=== PATIENT | male | born 1930 | race Caucasian/White ===

== ENCOUNTER 2017-03-16 09:24 | Inpatient (IN) ==
[2017-03-16] MEDS ORDERED: NS 1,000 ML IV ONE (09:51)
[2017-03-16 10:24] LABS: MANUAL DIFF NEEDED? NO
[2017-03-16 10:25] LABS: BASO% 0.3 % (0.0-0.8); EOS# 0.01 X1000 (0.0-0.7); EOS% 0.2 % (0.0-10.0); HEMATOCRIT 46.9 % (42.0-52.0); IMM GRAN# 0.03 X1000 (0.0-0.04); IMM GRAN% 0.5 % (0.0-0.5); LYMPH% 14.1 % (20.5-51.1); MCH 30.6 PG (27-31); MCHC 34.1 g/dL (33-37); MCV 89.7 FL (81-99); MONO# 0.99 X1000 (0.11-0.59); MONO% 15.5 % (1.7-9.3); MPV 11.1 FL (7.4-10.4); NEUT% 69.4 % (42.2-75.2); PLT 234 X1000 (130-400); RBC 5.23 XMIL (4.7-6.1)
[2017-03-16 10:41] LABS: INR 0.99 (0.86-1.15); PROTIME 13.4 Seconds (12.1-15.5)
--- NOTE | 2017-03-16 10:41 | EKG Report ---
Test Performed on : 03/16/2017 10:28:23 AM Test Reason : CHEST PAIN Blood Pressure : / mmHG Vent. Rate : 064 BPM Atrial Rate : 064 BPM P-R Int : 138 ms QRS Dur : 200 ms QT Int : 584 ms P-R-T Axes : 000 262 069 degrees QTc Int : 602 ms Atrial-sensed ventricular-paced rhythm Abnormal ECG When compared with ECG of 08-MAR-2017 09:48, No significant change was found Unconfirmed Result
[2017-03-16 10:42] LABS: PTT PL 30.3 Seconds (22.6-43.9)
--- NOTE | 2017-03-16 11:13 | Diag Imaging Result Document ---
PROCEDURE NAME: FLAT/UPRIGHT ABD/1 VIEW CHEST - 03/16/2017 FLAT AND UPRIGHT ABDOMEN, SINGLE VIEW CHEST: INDICATION: Cough and abdomen pain. FINDINGS: Supine and erect views of the abdomen reveal surgical clips within the pelvis and right upper quadrant. The bowel gas pattern is nonobstructive. There are degenerative changes lumbar spine. No free air is appreciated. Single view of the chest reveals cardiomegaly with a left pacemaker. There is elevated left hemidiaphragm which is stable. There is increased opacity at the right lung base compatible with infiltrate or focal edema. IMPRESSION: Right basilar infiltrate compatible with pneumonia of focal edema. Nonspecific abdomen.
[2017-03-16 11:38] LABS: ALBUMIN 3.9 g/dL (3.5-5.0); MAGNESIUM 2.8 mg/dL (1.5-2.7); POTASSIUM 3.2 mmol/L (3.5-5.1); TOTAL BILIRUBIN 1.1 mg/dL (0.20-1.00)
[2017-03-16] MEDS ORDERED: VANCOMYCIN 1 GM/NS 1 GM/250 ML IVPB IV ONE (11:52)
[2017-03-16] MEDS ORDERED: KLOR-CON PO ONE (11:52)
[2017-03-16] MEDS ORDERED: ZOSYN 3.375 GM/NS 3.375 GM/50 ML IVPB IV ONE (11:52)
--- NOTE | 2017-03-16 13:50 | PROVIDER DOCUMENTATION ---
This chart was entered by Joaquim Cheung Scribe, acting as scribe for Gabriel Cabezas MD. HPI-General Adult - General Chief Complaint: Weakness Stated Complaint: B/P PROB/LOW O2 STATS Time Seen by Provider: 03/16/17 09:44 Source: patient, family Allergies/Adverse Reactions: Patient Allergies Allergy/AdvReac Type Severity Reaction Status Date / Time codeine AdvReac Severe PT STATES Verified 03/16/17 09:38 "I FELT LIKE I WAS DRUNK" Home Medications: Home Medication List Medication Instructions Recorded Confirmed Last Taken Type Clopidogrel [Plavix] 75 mg PO QAM 01/06/14 03/08/17 02/05/17 06:00 History Potassium Chloride 10 - 20 meq PO DAILY 10/04/14 03/08/17 02/05/17 05:00 History Aspirin 81 mg PO QAM #0 chewtab 10/08/14 03/08/17 02/05/17 06:00 Rx LISINOpril [Prinivil] 2.5 mg PO QAM #0 tablet 10/08/14 03/08/17 02/05/17 06:00 Rx Metoprolol [Lopressor] 12.5 mg PO BID #0 tablet 10/08/14 03/08/17 02/05/17 05: 00 Rx Amiodarone [Cordarone] 200 mg PO QAM 05/03/15 03/08/17 02/05/17 06:00 History Digoxin 125 mcg PO DIRECTED 05/03/15 03/08/17 02/05/17 06:00 History Albuterol Sulfate Inhaler 2 puff INH Q6H PRN PRN #1 inhaler 01/22/16 03/08/17 Rx [Ventolin Hfa] Cholecalciferol (Vitamin D3) 400 unit PO DAILY 01/22/16 03/08/17 02/05/17 06:00 History [Vitamin D3] Furosemide [Lasix] 80 mg PO BID #60 tablet 02/07/17 03/08/17 Unknown Rx Metolazone 5 mg PO DAILY #30 tablet 03/08/17 Unknown Rx - History of Present Illness -Gen Adult Nature of Presenting Problems: patient is a 86 yo M that presents with weakness and cough/congestion x 1 week. patient has been laying around for 5 days. No fever/chills, shortness of breath , chest pain, or n/v/d. patient has dementia , lives with family but still takes care himself. Location of Pain/Injury: reports: generalized Pain Radiation: reports: no radiation Quality of Pain: reports: other (weakness) Severity: reports: moderate Onset/Duration: reports: gradual, 1 week ago Timing: reports: still present, constant Context/Activities at Onset: reports: none Modifying Factors: improves with: nothing Associated Symptoms: reports: cough, fatigue, weakness. denies: chest pain, diarrhea, dizziness, EENT symptoms, fever/chills, genitourinary problems, nausea , rash, vomiting Similar Symptoms Previously?: No Recently seen or treated by another doctor?: No Review of Systems - Adult - REVIEW OF SYSTEMS - ADULT ROS:: ROS per family Constitutional: denies: chills, fever Eyes: reports: no symptoms reported Ears, Nose, Mouth & Throat: denies: ear pain, sinus problem, throat pain, throat swelling Cardiovascular: denies: chest pain, palpitations, syncope Respiratory: reports: cough. denies: shortness of breath, wheezing Gastrointestinal: denies: abdominal pain, diarrhea, nausea, vomiting Genitourinary: reports: no symptoms reported Musculoskeletal: reports: muscle weakness. denies: joint pain Integumentary: denies: hives, itching, rash Neurological: denies: dizziness/vertigo, headache/migraines Psychiatric: reports: no symptoms reported Endocrine: reports: no symptoms reported Hematologic/Lymphatic: reports: no symptoms reported Allergic/Immunologic: reports: no symptoms reported All Other Systems: Reviewed and Negative Past History - Adult - PAST MEDICAL HISTORY-ADULT Review of Records: reports: Old Records Reviewed, Nursing Assessment Review, Medications Reviewed Cardiovascular: reports: CAD, CHF, HTN, pacemaker Respiratory: reports: asthma, COPD Musculoskeletal: reports: arthritis (gout) Neurological: reports: dementia - PRIOR SURGERIES/PROCEDURES Surgical/Procedure History: reports: CABG, cholecystectomy, pacemaker (defib), hernia repair, other (TURP) - IMMUNIZATION STATUS Childhood Immunizations: See Nurse Assessment Flu Vaccine: See Nurse Assessment - FAMILY HISTORY Family History: reviewed, not pertinent - SOCIAL HISTORY Smoking: non-smoker Alcohol Use Frequency: occasionally Living Situation: family Physical Exam-General - PHYSICAL EXAM-ADULT Initial Vital Signs Reviewed: Yes - CONSTITUTIONAL General Appearance: alert, no apparent distress - EYES Eyes: PERRL/EOMI, pink conjunctivae - HEAD, EARS, NOSE, MOUTH & THROAT HENMT: normocephalic/atraumatic, moist mucous membranes, normal ENT inspection - NECK Neck: full range of motion, normal inspection - RESPIRATORY Respiratory: no respiratory distress, no accessory muscle use, decreased breath sounds (right sided), crackles (right sided) - CARDIOVASCULAR Cardiovascular: regular rate, rhythm, no edema, no murmur - GASTROINTESTINAL (ABDOMEN) Abdominal Exam: normal bowel sounds, non tender, soft, no organomegaly, no pulsatile mass - MUSCULOSKELETAL Extremity: normal range of motion, normal inspection, no pedal edema, normal capillary refill - SKIN Integumentary: normal color, warm/dry - NEUROLOGIC Neurologic: grossly normal, no motor/sensory deficits Progress - PLAN OF CARE/RESULTS Progress/Plan/Lab Results: Vital Signs - 8 hr 03/16/17 09:29 Temperature 96.9 F L Pulse Rate 68 Respiratory Rate 24 Blood Pressure 085/047 O2 Sat by Pulse Oximetry 95 Vital Signs Temp Pulse Resp BP Pulse Ox 03/16/17 13:25 66 27 H 85/47 90 L 03/16/17 09:29 96.9 F L 68 24 085/047 95 codeine Adverse Reaction (Severe, Verified 03/16/17 09:38) PT STATES "I FELT LIKE I WAS DRUNK" Clopidogrel [Plavix] 75 mg PO QAM 01/06/14 Potassium Chloride 10 - 20 meq PO DAILY 10/04/14 Aspirin 81 mg PO QAM #0 chewtab 10/08/14 LISINOpril [Prinivil] 2.5 mg PO QAM #0 tablet 10/08/14 Metoprolol [Lopressor] 12.5 mg PO BID #0 tablet 10/08/14 Amiodarone [Cordarone] 200 mg PO QAM 05/03/15 Digoxin 125 mcg PO DIRECTED 05/03/15 Albuterol Sulfate Inhaler [Ventolin Hfa] 2 puff INH Q6H PRN PRN #1 inhaler 01/21 Cholecalciferol (Vitamin D3) [Vitamin D3] 400 unit PO DAILY 01/22/16 Furosemide [Lasix] 80 mg PO BID #60 tablet 02/07/17 Metolazone 5 mg PO DAILY #30 tablet 03/08/17 Laboratory 03/16/17 03/16/17 03/16/17 10:45 09:30 09:30 WBC 6.38 RBC 5.23 Hgb 16.0 Hct 46.9 MCV 89.7 MCH 30.6 MCHC 34.1 RDW Std Deviation 14.5 Plt Count 234 MPV 11.1 H Immature Gran % (Auto) 0.5 Neut % (Auto) 69.4 Lymph % (Auto) 14.1 L Davison % (Auto) 15.5 H Eos % (Auto) 0.2 Baso % (Auto) 0.3 Immature Gran # (Auto) 0.03 Neut # (Auto) 4.43 Lymph # (Auto) 0.90 L Davison # (Auto) 0.99 H Eos # (Auto) 0.01 Baso # (Auto) 0.02 PT 13.4 INR 0.99 APTT (Factor Assay) 30.3 Sodium Potassium Chloride Carbon Dioxide Anion Gap BUN Creatinine Estimated GFR/1.73 m2 BUN/Creatinine Ratio Glucose Calculated Osmolality Calcium Magnesium Total Bilirubin AST ALT Alkaline Phosphatase Creatine Kinase Troponin T Clw-M-Fldzcsgyukj Pept Total Protein Albumin Globulin Albumin/Globulin Ratio Plasma Lactate 1.3 03/16/17 03/16/17 03/16/17 09:30 09:30 09:30 WBC RBC Hgb Hct MCV MCH MCHC RDW Std Deviation Plt Count MPV Immature Gran % (Auto) Neut % (Auto) Lymph % (Auto) Davison % (Auto) Eos % (Auto) Baso % (Auto) Immature Gran # (Auto) Neut # (Auto) Lymph # (Auto) Davison # (Auto) Eos # (Auto) Baso # (Auto) PT INR APTT (Factor Assay) Sodium 128 L Potassium 3.2 L Chloride 82 L Carbon Dioxide 28 Anion Gap 18 BUN 109 H Creatinine 3.6 H Estimated GFR/1.73 m2 16 BUN/Creatinine Ratio 30 Glucose 112 H Calculated Osmolality 292 Calcium 9.0 Magnesium 2.8 H Total Bilirubin 1.10 H AST 22 ALT 13 Alkaline Phosphatase 95 Creatine Kinase 37 Troponin T 0.048 Qzd-L-Idzujnxqlki Pept 7249 H Total Protein 8.0 Albumin 3.9 Globulin 4.0 Albumin/Globulin Ratio 1.0 Plasma Lactate Orders Category Date Time Status Cardiac Monitoring DIRECTED Care 03/16/17 09:51 Active Oxygen Therapy- ED Nursing DIRECTED Care 03/16/17 13:26 Active Saline Loc NOW Care 03/16/17 09:51 Active FLAT/UPRIGHT ABD/1 VIEW CHEST [RAD] Stat Exams 03/16/17 09:51 Draft BLOOD CULTURE [BLDCUL] Stat Lab 03/16/17 09:51 Ordered CBC WITH ELECTRONIC DIFF [HEME] Stat Lab 03/16/17 09:30 Completed CK PROFILE [SP CHEM] Stat Lab 03/16/17 09:30 Completed COMPREHENSIVE METABOLIC PANEL [CHEM] Stat Lab 03/16/17 09:30 Completed LACTATE, PLASMA [CHEM] Stat Lab 03/16/17 10:45 Completed MAGNESIUM [CHEM] Stat Lab 03/16/17 09:30 Completed PRO B-NATRIURETIC PEPTIDE Stat Lab 03/16/17 09:30 Com[address]IME WITH INR PL [COAG] Stat Lab 03/16/17 09:[address] [COAG] Stat Lab 03/16/17 09:30 Completed TROPONIN T Stat Lab 03/16/17 09:30 Completed ua [URINALYSIS PL W/POSS RFLX CULT] [URINALYSIS] Stat Lab 03/16/17 10:27 Ordered 0.9% Sodium Chloride Inj [Ns] 1,000 ml Med 03/16/17 09:51 Discontinued IV 500 mls/hr Piperacil/Tazobact 3.375 gm/Ns [Zosyn 3.375 gm/Ns] Med 03/16/17 11:52 Discontinued 3.375 gm in 50 ml IV NOW Potassium Chloride E.r. [Klor-Con] Med 03/16/17 11:52 Discontinued 40 meq PO NOW ONE Vancomycin 1 gm/Ns Med 03/16/17 11:52 Discontinued 1 gm in 250 ml IV NOW EKG [EKG] Stat Ther 03/16/17 09:51 Draft Result Diagrams: 03/16/17 09:30 03/16/17 09:30 - EKG 1 Time of EKG reading by physician:: 10:28 EKG Read and Signed by:: Gabriel Cabezas EKG Interpretation (*Must complete 3 of following elements*): Abnormal Rate: 64 Rhythm: atrial paced QRS: normal ST Wave: normal Comments: non-diagnostic ekg - XRAY 1 XRAY Study: Chest, Abdomen Impression: Abnormal XRAY Interpretation: R basilar infiltrate compatible w pneumonia of focal edema , nonspecific abd - CONSULTS/PCP/HOSPITALIST Notification #1 *Consult/PCP/Hospitalist*: ornamental ironworker for hospitalist Time Discussed: 13:33 Consult Disposition: Admit Departure - Departure Time of Disposition Decision: 13:34 DIAGNOSIS: Pneumonia, Weakness, Dehydration, Hypotension, Acute kidney injury Disposition: ADMITTED INPATIENT 09 Certified Medical Emergency: Emergent Condition: Stable Referrals and Follow-Ups: Sabino Resendiz MD [Primary Care Provider] - - Critical Care Note This patient required my direct & personal management of CC.: Yes Total Time (mins): 35 (.) Critical Care Statement: This patient required my direct personal management to treat or rule out processes, the absence of which, could potentiallly result in sudden, clinically significant life or limb threatening deterioration. This chart was documented by the indicated scribe, (Joaquim Cheung, Scribe) and accurately reflects the services I performed and decisions made by me, Gabriel Cabezas MD, as attested by the provider's signature.
[2017-03-16] MEDS ORDERED: ZOFRAN IV PRN (17:41)
[2017-03-16 17:54] LABS: URINE CULTURE PL NEEDED? NO
[2017-03-16] MEDS ORDERED: DUONEB (A & A) INH PRN (18:02)
[2017-03-16 18:04] LABS: BILIRUBIN URINE NEGATIVE (NEGATIVE); BLOOD URINE NEGATIVE (NEGATIVE); CLARITY CLEAR (CLEAR); COLOR YELLOW; GLUCOSE URINE NEGATIVE (NEGATIVE); LEUKOCYTES URINE NEGATIVE (NEGATIVE); NITRITE URINE NEGATIVE (NEGATIVE); PROTEIN URINE NEGATIVE (NEGATIVE); UROBILINOGEN URINE NORMAL
[2017-03-16 18:28] LABS: URINE CAST NONE SEEN /LPF; URINE CRYSTAL NONE SEEN /HPF; URINE EPITHELIAL CELLS <10 /HPF (<10); URINE SOURCE CATH
[2017-03-16] MEDS: ROBITUSSIN-DM PO PRN (18:31)
[2017-03-16] MEDS: NS 1,000 ML IV SCH (18:31)
[2017-03-16] MEDS: DUONEB (A & A) INH SCH (20:04)
[2017-03-17] MEDS: DUONEB (A & A) INH SCH ×7 (00:07→23:01)
[2017-03-17] MEDS: LEVOPHED 8 MG in D5 1/2 NS 250 ML IV SCH ×2 (01:00→23:05)
[2017-03-17] MEDS: ROBITUSSIN-DM PO PRN ×2 (02:38→20:36)
[2017-03-17 05:49] LABS: HEMATOCRIT 41.4 % (42.0-52.0); HEMOGLOBIN 13.9 g/dL (14.0-18.0); MCH 30.6 PG (27-31); MCHC 33.6 g/dL (33-37); MCV 91.2 FL (81-99); RBC 4.54 XMIL (4.7-6.1)
[2017-03-17 06:19] LABS: ALBUMIN 3.3 g/dL (3.5-5.0); CALCIUM 8.1 mg/dL (8.8-10.2); MAGNESIUM 2.5 mg/dL (1.5-2.7); POTASSIUM 3.2 mmol/L (3.5-5.1); TOTAL BILIRUBIN 0.6 mg/dL (0.20-1.00); TOTAL PROTEIN 6.1 g/dL (6.3-8.3)
[2017-03-17] MEDS ORDERED: ZOSYN 3.375 GM/NS 3.375 GM/50 ML IVPB IV SCH (08:30)
[2017-03-17] MEDS ORDERED: VANCOMYCIN IV PER PHARMACY MISC SCH (08:30)
--- NOTE | 2017-03-17 08:46 | PROGRESS NOTE ---
DATE: 03/17/2017 SUBJECTIVE: Patient notes he is feeling a little bit better this morning. He denies any chest pain or palpitations. He denies any diarrhea. He states he is still tired and fatigued. PHYSICAL EXAMINATION: Vital Signs: Temperature 97, pulse 60, respiratory rate 26. BP improved at 111/50 but he is also on Levophed. Saturation 96% on 2 L. General: The patient is awake, alert, and oriented. He is lying in bed. He is currently in no respiratory distress. He is much more awake and alert this morning than he was last night. HEENT: Normocephalic and atraumatic. Neck: Supple. CV: Regular rate. Chest: Clear and nonlabored. Abdomen: Soft and nontender. Extremities: Moves all extremities. Neurologic: No changes. LABORATORIES: CBC normal. Sodium 132, potassium 3.2, creatinine 2.7, glucose 172. Albumin 3.3. ASSESSMENT: 1. Mild protein calorie malnutrition. 2. Congestive heart failure, currently not in exacerbation. In fact, his BNP is actually lower than his most recent lab. Currently, BNP is 7249. His most recent was 13,787. 3. Acute on chronic renal failure. BUN and serum creatinine both are continuing to improve, currently down to 98 and 2.7. 4. Hypokalemia. 5. Hyponatremia, improved. 6. Hypotension secondary to volume depletion and septic shock. Patient is improving. He was moved to the intensive care unit last night and placed on Levophed. His blood pressure and volume status continue to improve. His lungs are improving. We will repeat a chest x-ray today, recheck labs in the morning. We will attempt to wean him off of Levophed as tolerated. We will continue vancomycin and Zosyn for presumed pneumonia. Forty-five minutes were spent in total care. cc: Davian Elias MD
[2017-03-17] MEDS: FLOMAX PO SCH (09:10)
[2017-03-17] MEDS: PLAVIX PO SCH (09:10)
[2017-03-17] MEDS: CORDARONE PO SCH (09:10)
[2017-03-17] MEDS: NS 1,000 ML IV SCH ×2 (09:10→20:08)
[2017-03-17] MEDS: ASPIRIN PO SCH (09:10)
[2017-03-17] MEDS ORDERED: VANCOMYCIN 1,400 MG in NS 250 ML IV ONE (09:30)
[2017-03-17] MEDS: VITAMIN D PO SCH (09:53)
--- NOTE | 2017-03-17 09:57 | Diag Imaging Result Document ---
PROCEDURE NAME: CHEST-2 VIEWS - 03/17/2017 FRONTAL AND LATERAL CHEST, TWO VIEWS: COMPARISON: 03/16/2017. FINDINGS: There are sternal wires and surgical clips. There is a left sided pacemaker. There are increased interstitial markings in the left base. The upper mid lungs remain clear. Questionable tiny left effusion. There is a granuloma in the right base. IMPRESSION: Increased interstitial markings in the left base believed to be a combination of atelectasis and fibrosis with a small underlying infiltrate.
[2017-03-17] MEDS ORDERED: MISC. PHARMACY COMMUNICATION SCH (14:15)
--- NOTE | 2017-03-17 14:36 | HISTORY AND PHYSICAL ---
CHIEF COMPLAINT: Cough, congestion, weakness. HISTORY OF PRESENT ILLNESS: This is an 86-year-old male with a history of chronic systolic failure, severe ischemic cardiomyopathy with an EF of 20% in January 2017, COPD, and chronic kidney disease. He presented to the emergency room for evaluation from his primary care physician's office after having found a blood pressure of 80 systolic with saturations that were unable to be obtained in the office. The patient stated that he has been sick for a week with cough, congestion and chills, and over the last 5 days he lay in bed, had very little to eat or drink. He was afebrile on arrival to the emergency room with blood pressures 80/40 systolic. Chest x-ray revealed a right lower lobe pneumonia per Radiology read. Blood cultures were obtained. He was given vancomycin and Zosyn, a liter of fluid bolus, and admitted for further evaluation and treatment. PAST MEDICAL HISTORY: 1. Chronic systolic heart failure. 2. Severe ischemic cardiomyopathy with a left ventricular ejection fraction of 20% in January 2017. 3. Coronary artery disease status post coronary artery bypass graft. 4. Implantable defibrillator. 5. Chronic obstructive pulmonary disease. 6. Chronic kidney disease. 7. Hypertension. 8. Noncompliance with medications, diet, and M.D. followup. PAST SURGICAL HISTORY: Coronary artery bypass graft. Cholecystectomy. Hernia repair. TURP. Defibrillator placement. SOCIAL HISTORY: He drinks beer occasionally on a social basis. He denies tobacco or illicit drug use. He does live alone but family members are close that are very active in his care. ALLERGIES: Codeine which makes him feel like he is drunk. HOME MEDICATIONS: Aspirin 81 mg daily. Amiodarone 200 q.a.m. Plavix 75 mg every morning. Vitamin D3 400 daily. Digoxin 0.125 as directed. Prinivil 2.5 daily. Lasix 80 mg b.i.d. Lopressor 12.5 b.i.d. Metolazone 5 daily. Potassium chloride 10 mEq daily. REVIEW OF SYSTEMS: A 14 point review of systems is discussed with the patient with pertinent positives stated in HPI. He denied chest pain, palpitations, syncope, dizziness, shortness of breath, PND, orthopnea, abdominal pain, nausea, vomiting, diarrhea, black or bloody vomitus, black or bloody stools, any hematuria or dysuria. PHYSICAL EXAMINATION: GENERAL: This is a very pleasant, 86-year-old male, who is sitting in the bed with no distress. VITAL SIGNS: Blood pressure is 96/50 with a heart rate of 86, respirations are 21, temperature is 98.1 degrees oral, oxygen saturations of 95%-97% on 2 L nasal cannula. HEENT: Head is normocephalic, atraumatic. Pupils are equal, round, react to light. EOMs are intact. Sclerae are nonicteric. Mucous membranes are dry. NECK: Supple, with trachea midline. CARDIOVASCULAR: Regularly and rhythm. S1 and S2 appreciated. No murmurs or gallops noted. PULMONARY: He does have some right basilar crackles with prolonged expiration. No increased work of breathing noted. GASTROINTESTINAL: Abdomen is soft, nontender, nondistended with bowel sounds in all 4 quadrants. : His bladder is palpated distended about 3 finger widths below the umbilicus. It is taut. MUSCULOSKELETAL: Good range of motion of joints. SKIN: Warm and dry. EXTREMITIES: No clubbing, cyanosis, or edema. Calves are nontender. Pulses are palpable x4. NEUROLOGIC: He is alert and oriented. Of note, the patient is hard of hearing. DIAGNOSTIC DATA: WBC is 6.3, with a hemoglobin of 16, hematocrit 46.8, and platelets of 234,000. Sodium is 128, potassium 3.2, BUN 109, creatinine 3.6, with a glucose of 112. Magnesium is 2.8. ProBNP is 7249. Chest x-ray reveals right lower lobe pneumonia per Radiology read. EKG reveals ventricular pacing at a rate of 64. ASSESSMENT AND PLAN: 1. Sepsis secondary to right lower lobe pneumonia. 2. Right lower lobe pneumonia. Blood cultures were obtained in the emergency room. He was given vancomycin and Zosyn, as his creatinine is elevated at 3.6 we will have pharmacy dose both per his renal status. We will trend his labs daily. Incentive spirometer. 3. Acute kidney injury on chronic kidney disease. His baseline creatinine over the past year has been around 1.4. He has had very little p.o. intake over the last week, so dehydration would play a factor in this. He also had urinary retention. A Mari catheter was placed during my exam for return of 1700 mL of urine, so post obstruction would be a factor in this also. The patient was given vancomycin in the emergency room, so we will gently hydrate due to his cardiac status, we will have Pharmacy dose antibiotics as appropriate. We will hold any other renal toxic medications. 4. History of ischemic cardiomyopathy with an ejection fraction of 20%. We will continue with his home treatment. 5. Chronic systolic heart failure with ejection fraction of 20% as stated above. The patient does have a proBNP of 7249 although in review of his previous labs this is the lowest his proBNP has been in over a year, his last being 13,000 to 20,000. The patient is currently not in exacerbation. We will continue with his current regimen. 6. Hypokalemia. Will trend electrolytes and replete as appropriate. 7. Hyponatremia. We will gently hydrate and trend labs. 8. Hypotension. This is secondary to volume depletion and septic shock from pneumonia. He would have received a bolus of saline in the emergency room and we will gently hydrate given his cardiac status. 9. Chronic obstructive pulmonary disease. We will continue with his home regimen. We will give DuoNeb q.4 hours with q.2 p.r.n. and follow. 10. History of hypertension. Of course we will hold all antihypertensives as he is hypotensive. 11. Noncompliance with medications as well as diet. Aware. 12. Further treatments pending hospital course. Dictated by SHAHID Rojas for Davian Elias MD cc: SHAHID Rojas MD
[2017-03-17] MEDS: ZOSYN 2.25 GM/NS 2.25 GM/50 ML IVPB IV SCH (18:05)
[2017-03-18] MEDS: ZOSYN 2.25 GM/NS 2.25 GM/50 ML IVPB IV SCH ×3 (00:01→16:43)
[2017-03-18] MEDS: DUONEB (A & A) INH SCH ×6 (03:20→23:00)
[2017-03-18 06:07] LABS: HEMATOCRIT 37.1 % (42.0-52.0); HEMOGLOBIN 12.2 g/dL (14.0-18.0); MCH 30.4 PG (27-31); MCHC 32.9 g/dL (33-37); MCV 92.5 FL (81-99); MPV 10.6 FL (7.4-10.4); RBC 4.01 XMIL (4.7-6.1)
[2017-03-18 06:55] LABS: ALBUMIN 2.8 g/dL (3.5-5.0); CALCIUM 8.2 mg/dL (8.8-10.2); MAGNESIUM 2.3 mg/dL (1.5-2.7); POTASSIUM 2.9 mmol/L (3.5-5.1); TOTAL BILIRUBIN 0.4 mg/dL (0.20-1.00); TOTAL PROTEIN 6.1 g/dL (6.3-8.3)
[2017-03-18] MEDS: ASPIRIN PO SCH (08:38)
[2017-03-18] MEDS: NS 1,000 ML IV SCH ×3 (08:38→23:04)
[2017-03-18] MEDS: PLAVIX PO SCH (08:38)
[2017-03-18] MEDS: FLOMAX PO SCH (08:39)
[2017-03-18] MEDS: CORDARONE PO SCH (08:39)
[2017-03-18] MEDS ORDERED: KLOR-CON PO ONE (08:53)
[2017-03-18] MEDS ORDERED: LANOXIN PO SCH (09:00)
--- NOTE | 2017-03-18 09:43 | PROGRESS NOTE ---
DATE: 03/18/2017 SUBJECTIVE: The patient notes he feels better this morning. He denies any cough or congestion. He denies any chest pain or palpitations. He denies any fevers or chills. PHYSICAL EXAMINATION: Vital Signs: Temperature 97, pulse 67, respiratory rate 29, blood pressure 134/52, saturation 94% on 2 liters. General: The patient is awake, alert. He is currently in no respiratory distress. He is pleasant to talk with. He states that he is feeling much better. HEENT: Normocephalic. Neck: Supple. Cardiovascular: Regular rate. Chest: Relatively clear. Abdomen: Soft. Extremities: He moves all extremities. Neurologic: No focal changes. Skin: Warm and dry. No rashes. ASSESSMENT: 1. Sepsis secondary to right lower lobe pneumonia, improved. 2. Hypotensive shock secondary to sepsis, resolved, off of norepinephrine this morning. 3. Right lower lobe pneumonia. 4. Acute kidney injury. Creatinine continues to improve, currently down to 1.6; his baseline is 1.4. 5. Moderate protein-calorie malnutrition. 6. Hyperthyroidism. 7. Hypokalemia. We will replace. 8. Volume depletion. BUN and creatinine are still mildly elevated. PLAN: We will continue the patient on vancomycin per pharmacy. Continue aspirin, Plavix, and amiodarone. Continue IV fluids and Zosyn. Further orders as needed. We will continue to hold his blood pressure medicines, as well as Lasix. Today we will restart his digoxin. Continue IV fluids. We will move him to the floor. Further orders as needed. cc: Davian Elias MD
[2017-03-18] MEDS: VITAMIN D PO SCH (10:05)
[2017-03-18] MEDS: ROBITUSSIN-DM PO PRN ×2 (12:21→16:44)
[2017-03-19] MEDS: ZOSYN 2.25 GM/NS 2.25 GM/50 ML IVPB IV SCH ×2 (00:15→09:56)
[2017-03-19] MEDS: DUONEB (A & A) INH SCH ×6 (02:53→22:55)
[2017-03-19 06:33] LABS: HEMATOCRIT 36.4 % (42.0-52.0); HEMOGLOBIN 11.7 g/dL (14.0-18.0); MCH 30.3 PG (27-31); MCHC 32.1 g/dL (33-37); MCV 94.3 FL (81-99); MPV 10.5 FL (7.4-10.4); RBC 3.86 XMIL (4.7-6.1)
[2017-03-19 07:02] LABS: ALBUMIN 2.8 g/dL (3.5-5.0); CALCIUM 8.8 mg/dL (8.8-10.2); MAGNESIUM 2.2 mg/dL (1.5-2.7); POTASSIUM 4.1 mmol/L (3.5-5.1); TOTAL BILIRUBIN 0.5 mg/dL (0.20-1.00); TOTAL PROTEIN 6.3 g/dL (6.3-8.3)
[2017-03-19] MEDS: PLAVIX PO SCH (09:55)
[2017-03-19] MEDS: ASPIRIN PO SCH (09:55)
[2017-03-19] MEDS: VITAMIN D PO SCH (09:55)
[2017-03-19] MEDS: CORDARONE PO SCH (09:55)
[2017-03-19] MEDS: FLOMAX PO SCH (09:55)
[2017-03-19] MEDS ORDERED: VANCOMYCIN 1,300 MG in NS 250 ML IV SCH (10:00)
--- NOTE | 2017-03-19 10:53 | PROGRESS NOTE ---
DATE: 03/19/2017 SUBJECTIVE: The patient, this morning, is complaining of right foot pain stating that he needs to see an orthopedic immediately, that he fell a few days ago and "broke his foot." The patient denies any other complaints. He denies any shortness of breath currently. He states that he has not eaten in days, although I personally observed him eating supper last night. PHYSICAL EXAMINATION: Temperature 98, pulse 85, respiratory 20, BP 120/51. Saturation 96% on 2 L. General: The patient is awake, alert, oriented. He is currently in no respiratory distress. He has, unfortunately, extremely poor hearing. He does appear somewhat confused this morning. HEENT: Normocephalic. Neck supple. CV: Regular rate. Chest: Relatively clear. Abdomen: Soft. Extremities: Moves all extremities. Both feet appear tender to palpation diffusely. LABORATORY DATA: CBC normal. CMP with a creatinine at 1.2. Sodium 137. Potassium 4.1. ASSESSMENT: 1. Acute renal failure. Serum creatinine 3.6 on admission; currently down to 1.2. 2. Acute volume depletion. BUN was 109; currently down to 30. 3. Hyponatremia, stable. Sodium 137. 4. Hypokalemia. Potassium 2.9 yesterday; currently up to 4.1. 5. Moderate protein calorie malnutrition. We will continue to encourage p.o. 6. Right foot pain. We will check an x-ray. 7. Dementia appears stable. 8. Poor wound healing. 9. Left lower lobe pneumonia, improved. 10. Sepsis, resolved. 11. Ischemic cardiomyopathy with ejection fraction of 20%. PLAN: We will continue breathing treatments. Continue his amiodarone and Plavix as well as digoxin which was restarted yesterday. We will check an x-ray of his right foot. We will saline lock. We will start changing over to oral antibiotics and further orders as needed. cc: Davian Elias MD
[2017-03-19] MEDS: DOXYCYCLINE PO SCH ×2 (11:42→20:34)
--- NOTE | 2017-03-19 14:54 | Diag Imaging Result Document ---
PROCEDURE NAME: FOOT COMPLETE RIGHT - 03/19/2017 PLAIN RADIOGRAPH OF THE RIGHT FOOT, 3 VIEWS: COMPARISON: 02/18/2011. FINDINGS: There are mild degenerative changes at the head of the 1st metatarsal. There is no discrete fracture, dislocation, or intrinsic osseous lesion, otherwise. There is atherosclerotic calcification involving the ankle and foot. IMPRESSION: No definite acute osseous abnormality.
[2017-03-19] MEDS ORDERED: MOTRIN PO PRN (15:31)
[2017-03-19] MEDS: ZOSYN 3.375 GM/NS 3.375 GM/50 ML IVPB IV SCH ×2 (15:47→21:25)
[2017-03-20] MEDS: DUONEB (A & A) INH SCH ×6 (03:01→22:58)
[2017-03-20] MEDS: ZOSYN 3.375 GM/NS 3.375 GM/50 ML IVPB IV SCH ×2 (03:08→09:24)
[2017-03-20] MEDS: VITAMIN D PO SCH (09:24)
[2017-03-20] MEDS: ASPIRIN PO SCH (09:24)
[2017-03-20] MEDS: DOXYCYCLINE PO SCH ×2 (09:24→21:13)
[2017-03-20] MEDS: FLOMAX PO SCH (09:24)
[2017-03-20] MEDS: CORDARONE PO SCH (09:25)
[2017-03-20] MEDS: COLCRYS PO SCH (09:25)
[2017-03-20] MEDS: PLAVIX PO SCH (09:25)
--- NOTE | 2017-03-20 11:05 | PROGRESS NOTE ---
DATE: 03/20/2017 SUBJECTIVE: Patient notes that he is feeling better this morning. Denies any cough or congestion. Denies any shortness of breath. He is no longer complaining about his foot which is obviously different from yesterday's encounter. PHYSICAL EXAMINATION: Vital Signs: Temperature 98, pulse 81, respiratory rate 16, BP 116/56, saturating 100% on 2 L. Neck: Supple. CV: Regular rate. Chest: Relatively clear. Abdomen: Soft. Extremities: Moves all extremities. Neurologic: No changes. ASSESSMENT: 1. Sepsis, resolved. 2. Right lower lobe pneumonia, improved. Vancomycin has been stopped. Labs have been stable. Vital signs have been stable. We will stop Zosyn and change to Omnicef by mouth in anticipation of discharge. 3. Acute kidney injury, resolved. Creatinine down to 1.2. 4. Hyponatremia, resolved. 5. Hypokalemia, resolved. 6. 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 7. Systolic congestive heart failure, stable. 8. Chronic obstructive pulmonary disease. PLAN: We will stop Zosyn. We will change to doxycycline and Omnicef. Hopefully home in the next 1-2 days. We will recheck labs in the a.m. cc: Davian Elias MD
[2017-03-20] MEDS: OMNICEF PO SCH ×2 (11:22→21:13)
[2017-03-21] MEDS: DUONEB (A & A) INH SCH ×4 (03:01→15:08)
[2017-03-21 06:07] LABS: HEMATOCRIT 36.9 % (42.0-52.0); HEMOGLOBIN 11.7 g/dL (14.0-18.0); MCH 30.4 PG (27-31); MCHC 31.7 g/dL (33-37); MCV 95.8 FL (81-99); MPV 10.2 FL (7.4-10.4); RBC 3.85 XMIL (4.7-6.1)
[2017-03-21 06:16] LABS: AGAP 13; ALBUMIN 2.8 g/dL (3.5-5.0); ALKALINE PHOSPHATASE 64 U/L (32-122); BUN 20 mg/dL (8-22); CHLORIDE 97 mmol/L (98-107); COSMO 277; GOT 28 U/L (10-34); GPT 17 U/L (10-44); MAGNESIUM 2.2 mg/dL (1.5-2.7); POTASSIUM 4.1 mmol/L (3.5-5.1); SODIUM 137 mmol/L (136-145); TCO2 28 mmol/L (25-35); TOTAL PROTEIN 6.5 g/dL (6.3-8.3)
[2017-03-21 06:19] LABS: FREE T4 1.6 ng/dL (0.93-1.70)
[2017-03-21] MEDS: PLAVIX PO SCH (08:55)
[2017-03-21] MEDS: DOXYCYCLINE PO SCH (08:55)
[2017-03-21] MEDS: FLOMAX PO SCH (08:55)
[2017-03-21] MEDS: CORDARONE PO SCH (08:55)
[2017-03-21] MEDS: VITAMIN D PO SCH (08:55)
[2017-03-21] MEDS: COLCRYS PO SCH (08:55)
[2017-03-21] MEDS: OMNICEF PO SCH (08:55)
[2017-03-21] MEDS: ASPIRIN PO SCH (08:55)
[2017-03-21 12:32] VITALS: BP 118/69
--- NOTE | 2017-03-22 06:56 | DISCHARGE SUMMARY ---
ADMISSION DATE: 03/16/2017 DISCHARGE DATE: 03/21/2017 ADMISSION DIAGNOSES: 1. Sepsis secondary to a right lower lobe pneumonia. 2. Right lower lobe pneumonia. 3. Acute kidney injury on chronic kidney disease. 4. History of ischemic cardiomyopathy with an ejection fraction of 20%. 5. Hypokalemia. 6. Hyponatremia. 7. Hypotension secondary to volume depletion and septic shock from pneumonia. 8. Chronic obstructive pulmonary disease. 9. History of hypertension. 10. Noncompliance with medications as well as diet. DISCHARGE DIAGNOSES: 1. Sepsis secondary to a right lower lobe pneumonia, resolved. 2. Right lower lobe pneumonia. 3. Acute kidney injury on chronic kidney disease. 4. History of ischemic cardiomyopathy with an ejection fraction of 20%. 5. Hypokalemia, resolved. 6. Hyponatremia, resolved. 7. Hypotension secondary to volume depletion and septic shock from pneumonia, resolved. 8. Chronic obstructive pulmonary disease. 9. History of hypertension. 10. Noncompliance with medications as well as diet. FINDINGS OF FINDINGS: This is an 86-year-old male, who presented from his primary care physician's office to the emergency room for evaluation after he was found to have a blood pressure of 80 systolic with saturations that were unable to be obtained in the office. He had been feeling sick for about a week with cough, congestion and chills. Had been lying in the bed for 5 days. Had very little to eat or drink. Was afebrile. Chest x-ray revealed a right lower lobe pneumonia per Radiology read. He was placed on vancomycin and Zosyn. He received 1 L of fluid bolus. His kidney status showed, on arrival, a creatinine of 3.6, sodium was 128, potassium 3.2. After hydration, they have all returned to normal today with a sodium of 137, potassium 4.1, creatinine at 1.00. All of his antihypertensive medicines were held. His blood pressure has improved despite blood pressure medicine at 113/60. A foot x-ray was obtained on 03/19/2017 that showed no definite acute osseous abnormality. It was discussed with the patient's daughter, , via phone this morning about rehab versus home health. She felt since he has care at home that he would benefit from home health with a physical therapy component. So, it is felt that he can safely be discharged home today. We will set up home health with a physical therapy component. DISCHARGE MEDICATIONS: He will have a prescription for Omnicef 300 mg p.o. b.i.d., #14 no refills. Doxycycline 100 mg p.o. b.i.d., #14 with no refills. He will continue his amiodarone 200 mg p.o. q.a.m., aspirin 81 mg p.o. q.a.m., vitamin D3 400 units p.o. daily, Plavix 75 mg p.o. q.a.m., Colchicine 0.6 mg p.o. b.i.d., p.r.n., Digoxin 125 mcg p.o. as directed, Ventolin inhaler 2 puffs q.6 hours p.r.n., Lasix 80 mg p.o. b.i.d., potassium 10-20 mEq p.o. daily. We will not continue at this time his lisinopril, metoprolol or metaxalone, as the patient has not had any hypertensive issues at this time. FOLLOWUP: He will follow up with his primary care physician in the next 1-2 weeks. TIME SPENT: Thirty-five minute discharge. Dictated by SHAHID Kang for Davian Elias MD cc: SHAHID Kang MD Kirk L. Jackson, MD
== END 2017-03-21 16:30 | disposition home health service (06) ==
LOC: P.ED 09:24 → P.MEDSURG 15:13 → P.ICU 23:29 → P.MEDSURG 03-18 11:02
PROVIDERS: ATTEND Family Medicine